=== PATIENT | female | born 1980 | race Two or more races ===

== ENCOUNTER 2025-01-04 14:57 | Emergency (ER) | payer BC ==
[~2025-01-04] VITALS: Ht 175.3 cm; Wt 104.3 kg
[2025-01-04 15:04] VITALS: BP 125/72; TEMP 98.1; O2SAT 97
[2025-01-04] MEDS ORDERED: ACETAMINOPHEN ES 500 MG TABLET ONE (15:25)
[2025-01-04] MEDS ORDERED: IBUPROFEN 600 MG TABLET ONE (15:25)
[2025-01-04] MEDS: ACETAMINOPHEN ES 500 MG TABLET PO ONE (15:27)
[2025-01-04] MEDS: IBUPROFEN 600 MG TABLET PO ONE (15:28)
[2025-01-04] MEDS ORDERED: IBUP-1490 PO (16:02)
== END 2025-01-04 16:24 | disposition home or self-care (01) ==
LOC: ER 15:07
DX: M25.561 Pain in right knee (principal); Z88.5 Allergy status to narcotic agent